=== PATIENT | male | born 1950 | race Caucasian/White ===

== ENCOUNTER 2016-10-27 13:55 | Emergency (ER) | payer BC ==
--- NOTE | 2016-10-27 14:07 | EDM.PDOC ---
ED HPI GENERAL MEDICAL PROBLEM - General Chief Complaint: General Stated Complaint: i feel dizzy, Time Seen by Provider: 10/27/16 14:00 Source of Information: Reports: Patient, Family (), Old Records ([facility] chart/EMR), Other (EMR records from [facility]) History Limitations: Reports: No Limitations - History of Present Illness INITIAL COMMENTS - FREE TEXT/NARRATIVE: The patient was brought to the emergency room via private automobile by his for evaluation of mild nonspecific 2/10 anterior bilateral parietal headaches associated with some dizziness, near syncope, and mild dyspnea with symptoms starting while 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 He has been compliant with Eliquis and aspirin with no other medication noncompliance. He denies any other neurological deficits with stable chronic mild left foot paresthesia and numbness, which is the only deficit from his CVA as above. The patient denies any chest pain/pressure, heart flutter, orthostasis , orthopnea, diaphoresis, paresthesias, recent decreased exercise tolerance, or any other anginal-type symptoms. No recent history of abdominal pain, heartburn , diarrhea, melena, gross hematochezia, or any food intolerance, including fatty foods, etc.. The patient also denies any recent fever, cough, wheezing, etc.. No history of recent headaches, visual changes, diplopia, change in mental status, or other change in neurological status. The patient did eat lunch today Onset: Today, Sudden Onset Date: 10/27/16 Onset Time: 13:15 Duration: Constant Location: Reports: Head (Mild headache). Denies: Face, Neck, Chest, Abdomen, Back, Pelvis, Upper Extremity, Left, Upper Extremity, Right, Lower Extremity, Left, Lower Extremity, Right, Generalized Quality: Reports: Ache, Same as Previous Episode Severity: Mild Improves with: Reports: None Worsens with: Reports: None Context: Reports: Other (As above) Associated Symptoms: Reports: Shortness of Breath, Syncope (Near syncope). 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 Denies: Allergic Rhinitis, Cataract, Glaucoma, Hard of Hearing, Macular Degeneration, Retinal Detachment Other HEENT History: Patient wears glasses Cardiovascular History: Reports: Arrhythmia, Blood Clots/VTE/DVT, High Cholesterol, PVD, Other (See Below). Denies: Afib, Aneurysm, CAD, Cardiomyopathy, Heart Failure, Heart Murmur, Hypertension, SC, Syncope Other Cardiovascular History: First-degree AV block and borderline incomplete left bundle branch block versus repolarization changes on 03/09/16, DVT of the right greater saphenous superficial vein on 08/07/16, mild bilateral carotid occlusive disease by CT angiogram on 03/09/16 Respiratory History: Reports: None. Denies: Asthma, COPD, Intubation, Previous , PE, Pneumothorax, Sleep Apnea Gastrointestinal History: Reports: Colon Polyp, Diverticulosis, Other (See Below ). Denies: Celiac Disease, Cholelithiasis, Chronic Constipation, Chronic Diarrhea, Gastritis, GERD, GI Bleed, Hepatitis, Inflammatory Bowel Disease, Irritable Bowel Syndrome, Jaundice, Pancreatitis, PUD Other Gastrointestinal History: Moderate to severe sigmoid diverticulosis with additional 2 hyperplastic one in the proximal ascending colon and the other at 7 cm in the rectum polyps removed via colonoscopy on 09/09/07 Genitourinary History: Reports: BPH. Denies: Acute Renal Failure, Chronic Renal Insuffiency, Renal Calculus, STD, Urinary Incontinence, UTI, Recurrent Musculoskeletal History: Reports: Arthritis, Back Pain, Chronic, Fracture, Neck Pain, Chronic, Osteoarthritis, Other (See Below). Denies: Gout, RA, SLE Other Musculoskeletal History: Diffuse lumbar grade 1 spondylolisthesis in the lumbar spine by x-ray , right fifth carpal fracture at about age 38, L5 vertebral body fracture secondary to fall with a history of chronic low back pain Neurological History: Reports: CVA, Neuropathy, Peripheral, Other (See Below). Denies: Cerebral Aneurysms, Concussion, Headaches, Chronic, Head Trauma, Migraines, MS, Parkinson's, Seizure, TIA Other Neuro History: Right-sided CVA with secondary mild dysarthria and left hemiparesis on 03/09/16 with remaining left foot paresthesias, note TPA started in our facility on 03/09/16 prior to transfer Psychiatric History: Reports: Anxiety, Depression, Other (See Below). Denies: Abuse, Victim of, ADD, ADHD, Addiction, Psych Hospitalization(s), PTSD, Suicide Attempt, Suicidal Ideation Endocrine/Metabolic History: Reports: None. Denies: Diabetes, Type I, Diabetes , Type II, Hypothyroidism, IDDM, Osteoporosis Hematologic History: Reports: Other (See Below). 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 Denies: AIDS, HIV, SLE Oncologic (Cancer) History: Denies: Basal Cell Carcinoma, Colon, Hodgkin's Lymphoma, Leukemia, Malignant Melanoma, Non-Hodgkin's Lymphoma, Squamous Cell Carcinoma Dermatologic History: Reports: None. Denies: Eczema, Psoriasis - Infectious Disease History Infectious Disease History: Reports: Chicken Pox, Measles, Mumps. Denies: C- Difficile, Meningitis, Mononucleosis, MRSA, Pertussis (Whooping Cough), Rheumatic Fever, Rubella, Scarlet Fever, Shingles, TB, VRE - Past Surgical History Head Surgeries/Procedures: Reports: None HEENT Surgical History: Reports: Oral Surgery, Other (See Below). Denies: Adenoidectomy, Cataract Surgery, Eye Surgery, Laser Surgery, LASIK, Myringotomy w Tube(s), Naso-Sinus Surgery, Tonsillectomy Other HEENT Surgeries/Procedures: [place] teeth extraction 4 at about age 19, tonsillectomy and adenoidectomy at about age 7 Cardiovascular Surgical History: Reports: Other (See Below). Denies: Varicose, Vascular Surgery Other Cardiovascular Surgeries/Procedures: Loop recorder placed on 03/11/16 Respiratory Surgical History: Reports: None. Denies: Lung Biopsies, Thoracentesis GI Surgical History: Reports: Appendectomy, Colonoscopy, Polypectomy, Other ( See Below). Denies: Cholecystectomy, EGD, Hernia, Abdominal, Hernia, Inguinal, Hernia Repair/Other Other GI Surgeries/Procedures: Appendectomy at age 15, initial colonoscopy on 09/10 with removal of 2 benign hyperplastic polyps with subsequent colonoscopy on 02/10/13 showing no evidence of recurrence of his polyps Male Surgical History: Reports: Circumcision, Vasectomy, Other (See Below). Denies: TURP-Transurethral Resection of Prostate Other Male Surgeries/Procedures: Circumcision as an , vasectomy in his 30s Endocrine Surgical History: Reports: None. Denies: Thyroid Biopsy Neurological Surgical History: Reports: Lumbar Spine, Spinal Fusion, Other (See Below). Denies: C-Spine, Discectomy, Intracranial, Laminectomy, Sacral Spine Other Neurological Surgeries/Procedures: L5-S1 spinal fusion on about 10/03/11 Musculoskeletal Surgical History: Reports: None. Denies: Amputation, Arthroscopic Procedure, Carpal Tunnel, Ganglion Cyst, Joint Replacement, ORIF, Shoulder Surgery Oncologic Surgical History: Reports: None Dermatological Surgical History: Reports: Other (See Below) Other Dermatological Surgeries/Procedures: Vision of benign lesion from the left arm on 11/29/12 - Past Imaging History Past Imaging History: Reports: Cardiac Echo (Initial transthoracic thoracic echocardiogram showed hyperdynamic function with ejection fraction of greater than 70% on 03/10/16 with follow-up transesophageal echocardiogram on 03/11/16 showing normal function of 55-60%), CAT Scan (CT of the brain on 03/09/06 which was negative with subsequent follow-up CTA of the neck and brain at [facility] with negative findings for CVA however mild bilateral carotid occlusive disease noted), MRA (As below), MRI (MRI/MRA of the brain on 03/09/16 positive for multiple embolic areas of the right posterior cerebral artery, MRI of the lumbar spine on 08/04/13), Venous Doppler (Venous Doppler study of the right leg on 08/07/16 positive for greater saphenous superficial vein DVT with previous negative bilateral venous Doppler studies of the lower legs on 03/10/16) Social & Family History - Family History HEENT: Reports: None. Denies: Cataract, Glaucoma, Macular Degeneration, Retinal Detachment Cardiac: Reports: Blood Clots/VTE/DVT, Other (See Below). Denies: Afib, Aneurysm, Arrhythmia, Bypass, CAD, Heart Failure, High Cholesterol, Hypertension , SC, Pacemaker, PVD/COD, Stent, Syncope Other Cardiac Family History: Niece with history of DVTs Respiratory: Reports: None. Denies: Asthma, COPD, PE, Pneumothorax, Sleep Apnea GI: Reports: None. Denies: Celiac Disease, Cholelithiasis, Colon Polyps, GERD, GI bleed, Inflammatory Bowel Disease, Irritable Bowel Syndrome, PUD : Reports: Other (See Below). Denies: Dialysis, Renal Calculus, Renal Disease /Insufficiency Other Family History: Daughter with history of focal glomerulosclerosis at age 2 OBGYN: Reports: None. Denies: Endometriosis, Recurrent Spontaneous Musculoskeletal: Reports: None. Denies: Gout, RA, SLE Neurological: Reports: Other (See Below). Denies: Alzheimers Disease, Cerebral Aneurysms, CVA, Dementia, Migraines, MS, Neuropathy, Peripheral, Parkinson's, Seizure, TIA Other Neurological Family History: Father with fatal ALS at age 67 Psychiatric: Reports: Anxiety, Depression, Other (See Below). Denies: Abuse, Victim of, ADD, ADHD, Psych Hospitalization(s), PTSD, Suicide Attempt Other Psychiatric Family History: Paternal uncle with anxiety depression disorder and history of alcohol abuse Endocrine/Metabolic: Reports: None. Denies: Diabetes, Type I, Diabetes, type II , Hypothyroidism, IDDM Hematologic: Reports: Other (See Below). Denies: Anemia, SLE Other Hematologic Family History: Sister with factor V Leiden deficiency(? carrier) Immunologic: Reports: None. Denies: AIDS, HIV, SLE Dermatologic: Reports: None. Denies: Angiodema, Eczema, Psoriasis Oncologic: Reports: Breast, Colon, Prostate, Other (See Below). Denies: Hodgkin 's Lymphoma, Leukemia, Lymphoma, Non-Hodgkin's Lymphoma, Skin Other Oncologic Family History: Paternal grandfather with fatal colon cancer at age 70, cousin with fatal prostate cancer at age 53, cousin 2 with with breast cancer at age 45 and age 42, paternal uncle with fatal prostate cancer at age 67 , another paternal uncle with unknown type of cancer fatal at age 70 - Tobacco Use Smoking Status *Q: Never Smoker Second Hand Smoke Exposure: No Second Hand Smoke Education Provided: No - Caffeine Use Caffeine Use: Reports: Coffee (2 cups per day and), Tea (2 bottles per week). Denies: Energy Drinks, Soda - Alcohol Use Alcohol Use History: Yes Days Per Week of Alcohol Use: 0 (No previous DWIs, problems with alcohol abuse, etc.) Number of Drinks Per Day: 0 (No alcohol use since his CVA in February 2016) Total Drinks Per Week: 0 - Recreational Drug Use Recreational Drug Use: No Drug Use in Last 12 Months: No Recreational Drug Type: Denies: Amphetamines (Speed), Cocaine, Heroin, Inhalants (Glues, Solvents, Aerosols), LSD (Acid), Marijuana/Hashish, Methamphetamine, Morphine - Living Situation & Occupation Living situation: Reports: (1985, 2 children from this relationship with his having 2 children from a previous marriage), with Family () 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 Constitutional: Denies: Fever, Chills, Malaise, Weakness, Fatigue, Night Sweats , Diaphoresis, Decreased Appetite, Weight Loss, Weight Gain HEENT: Reports: Glasses, Vertigo. Denies: Dental Pain, Ear Discharge, Ear Pain , Eye Discharge, Eye Pain, Hearing Loss, Rhinitis, Sinus Problem, Throat Pain, Throat Swelling, Vision Change Respiratory: Reports: Shortness of Breath. Denies: Wheezing, Pleuritic Chest Pain, Cough, Sputum, Hemoptysis Cardiovascular: Reports: Dyspnea on Exertion (Borderline), Lightheadedness, Syncope (Near syncope). Denies: Chest Pain, Blood Pressure Problem, Claudication, Edema, Orthopnea, Palpitations Endocrine: Reports: No Symptoms. Denies: Fatigue GI/Abdominal: Reports: No Symptoms. Denies: Abdominal Pain, Anorexia, Black Stool, Bloody Stool, Constipation, Diarrhea, Decreased Appetite, Difficulty Swallowing, Distension, Hematemesis, Hematochezia, Melena, Mucous in Stool, Nausea, Stool Incontinence, Vomiting : Reports: No Symptoms. Denies: Discharge, Dysuria, Flank Pain, Frequency, Hematuria, Incontinence, Pain, Urgency, Urinary Retention Musculoskeletal: Reports: No Symptoms. Denies: Neck Pain, Shoulder Pain, Arm Pain, Leg Pain, Joint Pain, Muscle Stiffness Skin: Reports: No Symptoms. Denies: Diaphoresis, Bruising, Wound Neurological: Reports: Dizziness, Headache, Numbness (Stable left foot paresthesias), Paresthesia (As above), Syncope (Near-syncope as above), Tingling (As above), Difficulty Walking (Secondary to his dizziness). Denies: Confusion, Pre-Existing Deficit, Seizure, Tremors, Trouble Speaking, Weakness, Change in Speech, Gait Disturbance Psychiatric: Reports: No Symptoms. Denies: Agitation, Anxiety, Confusion, Cravings, Depression, Hallucinations Hematologic/Lymphatic: Reports: No Symptoms Immunologic: Reports: No Symptoms ED EXAM, GENERAL - Physical Exam Exam: See Below Exam Limited By: No Limitations General Appearance: Alert, WD/WN, No Apparent Distress Eye Exam: Bilateral Eye: EOMI, Normal Fundi, Normal Inspection (No nystagmus), PERRL Ears: Normal External Exam, Normal Canal, Hearing Grossly Normal, Normal TMs Nose: Normal Inspection, Normal Mucosa, No Blood Throat/Mouth: Normal Inspection, Normal Lips, Normal Teeth, Normal Gums, Normal Oropharynx, Normal Voice, No Airway Compromise. No: Dysphagia, Perioral Cyanosis Head: Atraumatic, Normocephalic. No: Facial Swelling, Facial Tenderness, Sinus Tenderness Neck: Normal Inspection, Supple, Non-Tender, Full Range of Motion. No: Carotid Bruit, Lymphadenopathy (L), Lymphadenopathy (R), Thyromegaly Respiratory/Chest: No Respiratory Distress, Lungs Clear, Normal Breath Sounds, No Accessory Muscle Use, Chest Non-Tender. No: Pleural Rub, Retractions Cardiovascular: Normal Peripheral Pulses, Regular Rate, Rhythm, No Edema, No Gallop, No JVD, No Murmur, No Rub. No: Gallop/S3, Gallop/S4, Extra Beats (No extrasystoles at time of exam) Peripheral Pulses: 2+: Radial (L), Radial (R), Dorsalis Pedis (L), Dorsalis Pedis (R) GI/Abdominal: Normal Bowel Sounds, Soft, Non-Tender, No Organomegaly, No Distention, No Abnormal Bruit, No Mass. No: Guarding (Male) Exam: Deferred Rectal (Males) Exam: Deferred Back Exam: Normal Inspection, Full Range of Motion. No: CVA Tenderness (L), CVA Tenderness (R), Muscle Spasm Extremities: Normal Inspection, Normal Range of Motion, Non-Tender, No Pedal Edema, Normal Capillary Refill. No: Hernando's Sign Neurological: Alert, Oriented, CN II-XII Intact, Normal Cognition, Normal Gait, Normal Reflexes (Negative Babinski's, finger to nose, and pronator rotation tests. No evidence of facial paresis, tongue deviation, orthostasis, etc.. Excellent reverse thought processes.), No Motor/Sensory Deficits, Other (Mild orthostasis and dizziness with standing, however no vertigo) Psychiatric: Normal Affect, Normal Mood Skin Exam: Warm, Dry, Intact, Normal Color, No Rash. No: Ecchymosis, Wound/ Incision Lymphatic: No Adenopathy EKG INTERPRETATION EKG Date: 10/27/16 Time: 14:15 Rhythm: NSR Rate (Beats/Min): 60 [place]: Normal (Neutral) P-Wave: Enlarged (Moderate biphasic P waves with pulmonary hypertension by EKG) QRS: Wide (QRS interval of 0.11 seconds representing repolarization changes with stable T-wave inversion in leads 3 and V1) ST-T: Normal QT: Normal WV/PQ Interval: WV interval of 0.20 seconds representing borderline first- degree AV block Comparison: No Change (Last EKG on 03/09/16) EKG Interpretation Comments: 1. No acute ischemic changes 2. Left atrial enlargement 3. First-degree AV block 4. Pulmonary hypertension by EKG 5. Repolarization changes Course - Vital Signs Last Recorded V/S: Last Vital Signs Temp 36.4 C 10/27/16 14:31 Pulse 62 10/27/16 14:31 Resp 20 10/27/16 14:31 BP 132/86 10/27/16 14:31 Pulse Ox 100 10/27/16 14:31 Vital Signs - 24 hr 10/27/16 10/27/16 10/27/16 14:03 14:08 14:31 Temperature [ 35.9 C 36.4 C Temporal] Pulse, 70 62 62 Peripheral [ Left Pulse Oximetry] Respiratory 20 20 20 Rate Blood Pressure 119/73 128/85 132/86 [Right Upper Arm] O2 Sat by Pulse 99 99 100 Oximetry 10/27/16 10/27/16 10/27/16 14:45 15:00 15:36 Temperature [ Temporal] Pulse, 62 65 64 Peripheral [ Left Pulse Oximetry] Respiratory 16 15 14 Rate Blood Pressure 133/81 134/82 133/79 [Right Upper Arm] O2 Sat by Pulse 100 100 100 Oximetry 10/27/16 16:00 Temperature [ Temporal] Pulse, 67 Peripheral [ Left Pulse Oximetry] Respiratory 18 Rate Blood Pressure 135/85 [Right Upper Arm] O2 Sat by Pulse 100 Oximetry - Orders/Labs/Meds Orders: Active Orders 24 hr Category Date Time Status Cardiac Monitoring [RC] . DIRECTED Care 10/27/16 14:08 Active EKG Documentation Completion [RC] ASDIRECTED Care 10/27/16 14:08 Active Oxygen Therapy, ED [RC] CONTINUOUS Care 10/27/16 14:08 Active Peripheral IV Care [RC] . DIRECTED Care 10/27/16 14:08 Active Pulse Oximetry [RC] CONTINUOUS Care 10/27/16 14:08 Active Up With Assistance [RC] PFP Care 10/27/16 14:08 Active Vital Signs [RC] PFP Care 10/27/16 14:08 Active Nothing per Oral Now Diet [DIET] Diet 10/27/16 Breakfast Active Chest 1V Frontal [CR] Stat Exams 10/27/16 14:08 Ordered Head wo Cont [CT] Stat Exams 10/27/16 14:15 Ordered Sodium Chloride 0.9% [Saline Flush] Med 10/27/16 14:08 Active 10 ml FLUSH ASDIRECTED PRN Obtain Past Medical Record [OM.PC] Urgent Oth 10/27/16 14:08 Active Peripheral IV Insertion Adult [OM.PC] Stat Oth 10/27/16 14:08 Ordered Resuscitation Status Stat Resus Stat 10/27/16 14:08 Ordered Medication Orders Sodium Chloride (Saline Flush) 10 ml FLUSH ASDIRECTED PRN PRN Reason: Keep Vein Open Labs: Laboratory Tests 10/27/16 10/27/16 10/27/16 Range/Units 14:10 14:10 14:10 WBC 6.5 (4.0-10.2) K/uL RBC 4.44 (4.33-5.41) M/uL Hgb 14.1 (13.1-16.8) g/dL Hct 41.8 (39.0-49.0) % MCV 94.1 (84.0-98.0) fL MCH 31.8 (28.2-33.3) pg MCHC 33.7 (31.7-36.0) g/dL RDW 12.1 (11.2-14.1) % Plt Count 182 (150-350) K/uL Neut % (Auto) 68.2 (45.0-80.0) % Lymph % (Auto) 19.0 (10.0-50.0) % Lanier % (Auto) 8.3 (2.0-14.0) % Eos % (Auto) 4.0 (0.0-5.0) % Baso % (Auto) 0.5 (0.0-2.0) % Neut # (Auto) 4.46 (1.40-7.00) K/uL Lymph # (Auto) 1.24 (0.50-3.50) K/uL [place]ier # (Auto) 0.54 (0.00-1.00) K/uL Eos # (Auto) 0.26 (0.00-0.50) K/uL Baso # (Auto) 0.03 (0.00-0.20) K/uL PT 10.5 (9.8-11.7) SEC INR 1.0 APTT 24.4 (23.5-30.0) SEC D-Dimer, Quantitative 183 (0-400) ng/mL Sodium (136-145) mmol/L Potassium (3.5-5.1) mmol/L Chloride (98-107) mmol/L Carbon Dioxide (21.0-32.0) mmol/L BUN (7-18) mg/dL Creatinine (0.51-1.17) mg/dL Est Cr Clr Drug Dosing mL/min Estimated GFR (MDRD) mL/min Glucose (74-106) mg/dL Lactic Acid (0.4-2.0) mmol/L Uric Acid (2.6-7.2) mg/dL Calcium (8.5-10.1) mg/dL Magnesium (1.8-2.4) mg/dL Total Bilirubin (0.2-1.0) mg/dL AST (15-37) U/L ALT (12-78) U/L Alkaline Phosphatase (46-116) IU/L Creatine Kinase (26-308) U/L Creatine Kinase Index (0.0-2.5) % CK-MB (CK-2) (0.00-3.60) ng/mL Troponin I (0.000-0.056) ng/mL NT-Pro-B Natriuret Pep (0-125) pg/mL Total Protein (6.4-8.2) g/dL Albumin (3.4-5.0) g/dL TSH, Ultra Sensitive (0.358-3.740) mIU/mL 10/27/16 10/27/16 Range/Units 14:10 14:10 WBC (4.0-10.2) K/uL RBC (4.33-5.41) M/uL Hgb (13.1-16.8) g/dL Hct (39.0-49.0) % MCV (84.0-98.0) fL MCH (28.2-33.3) pg MCHC (31.7-36.0) g/dL RDW (11.2-14.1) % Plt Count (150-350) K/uL Neut % (Auto) (45.0-80.0) % Lymph % (Auto) (10.0-50.0) % Lanier % (Auto) (2.0-14.0) % Eos % (Auto) (0.0-5.0) % Baso % (Auto) (0.0-2.0) % Neut # (Auto) (1.40-7.00) K/uL Lymph # (Auto) (0.50-3.50) K/uL Lanier # (Auto) (0.00-1.00) K/uL Eos # (Auto) (0.00-0.50) K/uL Baso # (Auto) (0.00-0.20) K/uL PT (9.8-11.7) SEC INR APTT (23.5-30.0) SEC D-Dimer, Quantitative (0-400) ng/mL Sodium 141 (136-145) mmol/L Potassium 3.8 (3.5-5.1) mmol/L Chloride 103 (98-107) mmol/L Carbon Dioxide 28.8 (21.0-32.0) mmol/L BUN 17 (7-18) mg/dL Creatinine 1.07 (0.51-1.17) mg/dL Est Cr Clr Drug Dosing 75.26 mL/min Estimated GFR (MDRD) > 60 mL/min Glucose 94 (74-106) mg/dL Lactic Acid 0.9 (0.4-2.0) mmol/L Uric Acid 5.5 (2.6-7.2) mg/dL Calcium 8.8 (8.5-10.1) mg/dL Magnesium 1.9 (1.8-2.4) mg/dL Total Bilirubin 0.5 (0.2-1.0) mg/dL AST 29 (15-37) U/L ALT 43 (12-78) U/L Alkaline Phosphatase 82 (46-116) IU/L Creatine Kinase 126 (26-308) U/L Creatine Kinase Index 1.8 (0.0-2.5) % CK-MB (CK-2) 2.30 (0.00-3.60) ng/mL Troponin I 0.000 (0.000-0.056) ng/mL NT-Pro-B Natriuret Pep 69 (0-125) pg/mL Total Protein 6.7 (6.4-8.2) g/dL Albumin 3.8 (3.4-5.0) g/dL TSH, Ultra Sensitive 2.172 (0.358-3.740) mIU/mL Meds: Medications Generic Name Dose Route Start Last Admin Trade Name Freq PRN Reason Stop Dose Admin Sodium Chloride 10 ml 10/27/16 14:08 Saline Flush FLUSH ASDIRECTED PRN Keep Vein Open Discontinued Medications Generic Name Dose Route Start Last Admin Trade Name Freq PRN Reason Stop Dose Admin Famotidine 40 mg 10/27/16 14:08 10/27/16 14:13 Pepcid IVPUSH 10/27/16 14:09 40 mg ONETIME ONE Administration - Radiology Interpretation Free Text/Narrative:: transition mgr shows normal sinus rhythm with heart rate in the low 60s with occasional mild sinus bradycardia in the high 80s. Occasional uniform PVCs noted but no other significant no ectopy or arrhythmia Chest x-ray, portable, shows mild obstructive disease with possible mild left atrial enlargement with no cardiomegaly, CHF, pulmonary infiltrates, pneumothorax, etc. Loop recorder noted in the left upper chest wall region Telephone consultation at 15:08 hours with the radiology department at [facility] with preliminary verbal report of noncontrast CT of the brain. Borderline sinusitis noted but no other acute findings CT Results Date: 10/27/16 CT Results Time: 15:08 Departure - Departure Time of Disposition: 16:15 Disposition: DC/Tfer to Acute Hospital 02 Condition: Good Clinical Impression: Dizziness, Factor V deficiency, congenital, PVCs (premature ventricular contractions), Mixed anxiety depressive disorder CVA (cerebral vascular accident) Qualifiers: CVA mechanism: embolism Precerebral and cerebral artery: posterior cerebral artery Laterality of affected vessel: right Qualified Code(s): I63.431 - Cerebral infarction due to embolism of right posterior cerebral artery Hyperlipidemia Qualifiers: Hyperlipidemia type: unspecified Qualified Code(s): E78.5 - Hyperlipidemia, unspecified Osteoarthritis Qualifiers: Osteoarthritis location: multiple joints Osteoarthritis type: primary Qualified Code(s): M15.0 - Primary generalized (osteo)arthritis COPD (chronic obstructive pulmonary disease) Qualifiers: COPD type: emphysema Emphysema type: panlobular Qualified Code(s): J43.1 - Panlobular emphysema - Discharge Information Forms: Interfacility Transfer EMTALA, ED Department Discharge - Problem List & Annotations (1) Dizziness SNOMED Code(s): 301484364, 450737986 Code(s): R42 - DIZZINESS AND GIDDINESS Status: Acute Priority: High Onset Date: 10/27/16 Annotation/Comment:: Stroke code not called secondary to absence of acute neurological history and clinical findings. Note significant CVA in the past as below/above, however. Telephone consultation initially at 15: [address] Jones, emergency room physician at [facility], who recommends direct admission to the hospitalist service. Subsequent telephone consultation at 15:[address] Macedo, hospitalist at [facility], who does accept the patient for direct admission, with no further treatment recommendations given. Various therapeutic options were discussed with the patient, his , and his daughter by telephone consultation with all parties requesting transfer to [place] rather than admission to our facility for observation. Symptoms somewhat improved at time of transfer, including his headache. Possible labyrinthitis, however neurological checks will be conducted by the paramedics in route with direct evaluation in the emergency room, if the patient's neurological condition changes. No clinical evidence of significant sinusitis despite CT findings as above. Secondary to his loop recorder he is likely not a candidate for repeat MRI although accepting physicians will check on the model number of this device. 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 No true neurological deficits or true neurological type symptoms prior to arrival. D-dimer is normal today with previously elevated d-dimer is at time of both his CVA and right leg DVT. No clinical evidence of DVT or PE despite his history of mild nonspecific dyspnea as above. Consider CTA of the chest depending on his clinical course. Qualifiers: CVA mechanism: embolism Precerebral and cerebral artery: posterior cerebral artery Laterality of affected vessel: right Qualified Code(s): I63.431 - Cerebral infarction due to embolism of right posterior cerebral artery (3) PVCs (premature ventricular contractions) SNOMED Code(s): 95850079 Code(s): I49.3 - VENTRICULAR PREMATURE DEPOLARIZATION Status: Acute Priority: Medium Onset Date: 10/27/16 Annotation/Comment:: Note occasional uniform PVCs and borderline bradycardia noted. No true anginal-type symptoms. Note current loop recorder, which has been negative to this point by their history. Additional history of borderline repolarization changes versus incomplete bundle branch block and first-degree AV block with no beta britney therapy (4) COPD (chronic obstructive pulmonary disease) SNOMED Code(s): 40232293 Code(s): J44.9 - CHRONIC OBSTRUCTIVE PULMONARY DISEASE, UNSPECIFIED Status : Chronic Priority: Medium Annotation/Comment:: Borderline COPD by chest x- ray and pulmonary hypertension by EKG with consideration of PFTs depending on his clinical course. No fever or bronchitic type symptoms Qualifiers: COPD type: emphysema Emphysema type: panlobular Qualified Code(s): J43.1 - Panlobular emphysema (5) Factor V deficiency, congenital SNOMED Code(s): 84333719 Code(s): D68.2 - HEREDITARY DEFICIENCY OF OTHER CLOTTING FACTORS Status: Chronic Priority: Medium Annotation/Comment:: As above. Note current aspirin and Eliquis therapy with the patient and his advised to discuss this further with accepting providers and his clinical evaluator to see whether aspirin should be continued in light of his Eliquis. (6) Hyperlipidemia SNOMED Code(s): 74603368 Code(s): E78.5 - HYPERLIPIDEMIA, UNSPECIFIED Status: Chronic Priority: Medium Annotation/Comment:: Currently under therapy. No chest pain or anginal type symptoms. Qualifiers: Hyperlipidemia type: unspecified Qualified Code(s): E78.5 - Hyperlipidemia , unspecified (7) Mixed anxiety depressive disorder SNOMED Code(s): 744310016 Code(s): F41.8 - OTHER SPECIFIED ANXIETY DISORDERS Status: Chronic Priority: Medium Annotation/Comment:: Stable by patient history with no current medical therapy required (8) Osteoarthritis SNOMED Code(s): 509378898 Code(s): M19.90 - UNSPECIFIED OSTEOARTHRITIS, UNSPECIFIED SITE Status: Chronic Priority: Medium Annotation/Comment:: Stable by patient history Qualifiers: Osteoarthritis location: multiple joints Osteoarthritis type: primary Qualified Code(s): M15.0 - Primary generalized (osteo)arthritis - Problem List Review Problem List Initiated/Reviewed/Updated: Yes - My Orders Last 24 Hours: My Active Orders 10/27/16 14:08 Cardiac Monitoring [RC] . DIRECTED EKG Documentation Completion [RC] ASDIRECTED Oxygen Therapy, ED [RC] CONTINUOUS Peripheral IV Care [RC] . DIRECTED Pulse Oximetry [RC] CONTINUOUS Up With Assistance [RC] PFP Vital Signs [RC] PFP Chest 1V Frontal [CR] Stat Sodium Chloride 0.9% [Saline Flush] 10 ml FLUSH ASDIRECTED PRN Obtain Past Medical Record [OM.PC] Urgent Peripheral IV Insertion Adult [OM.PC] Stat Resuscitation Status Stat 10/27/16 14:15 Head wo Cont [CT] Stat 10/27/16 Breakfast Nothing per Oral Now Diet [DIET] - Assessment/Plan Last 24 Hours: My Active Orders 10/27/16 14:08 Cardiac Monitoring [RC] . DIRECTED EKG Documentation Completion [RC] ASDIRECTED Oxygen Therapy, ED [RC] CONTINUOUS Peripheral IV Care [RC] . DIRECTED Pulse Oximetry [RC] CONTINUOUS Up With Assistance [RC] PFP Vital Signs [RC] PFP Chest 1V Frontal [CR] Stat Sodium Chloride 0.9% [Saline Flush] 10 ml FLUSH ASDIRECTED PRN Obtain Past Medical Record [OM.PC] Urgent Peripheral IV Insertion Adult [OM.PC] Stat Resuscitation Status Stat 10/27/16 14:15 Head wo Cont [CT] Stat 10/27/16 Breakfast Nothing per Oral Now Diet [DIET] Assessment:: As above Plan: As above. Extensive precautions were given to the patient and his , who are in agreement with the treatment plan. Ambulance transfer with children[facility] [employer] caretaker accompaniment
[2016-10-27] MEDS ORDERED: Sodium Chloride 0.9% 10 ML Syringe FLUSH PRN (14:08)
[2016-10-27] MEDS ORDERED: Famotidine 20 MG/2 ML SDV IVPUSH ONE (14:08)
[2016-10-27 14:40] LABS: CHLORIDE,CL 103 mmol/L (98-107); SODIUM,NA 141 mmol/L (136-145)
[2016-10-27 16:01] VITALS: BP 135/85
== END 2016-10-27 16:15 ==
LOC: LL.ED 13:55
DX: I63.431 Cerebral infarction due to embolism of right posterior cerebral artery (principal); I49.3 Ventricular premature depolarization; F41.8 Other specified anxiety disorders; D68.2 Hereditary deficiency of other clotting factors; J43.1 Panlobular emphysema; M15.0 Primary generalized (osteo)arthritis; E78.5 Hyperlipidemia, unspecified; Z88.0 Allergy status to penicillin; Z79.82 Long term (current) use of aspirin; Z90.89 Acquired absence of other organs
CPT/HCPCS: 36415; 70450; 71010; 80053; 82550; 82553; 83605; 83735; 83880; 84443; 84484; 84550; 85025; 85379; 85610; 85730; 93005; 96374; 99285; S0028

== ENCOUNTER 2021-02-07 11:12 | Day surgery (SDC) | payer MEDICARE, BC ==
[~2021-02-07 11:12] MED LIST: Midazolam 1 MG/ML 2 ML SDV ONE; Propofol 200 MG/20 ML SDV ONE
[2021-02-07] MEDS ORDERED: Lactated Ringers 1,000 ML IV SCH (11:15)
[2021-02-07] MEDS ORDERED: Sodium Chloride 0.9% 10 ML Syringe FLUSH PRN (11:15)
[2021-02-07] MEDS ORDERED: Propofol 200 MG/20 ML SDV ONE (12:45)
[2021-02-07] MEDS ORDERED: Midazolam 1 MG/ML 2 ML SDV ONE (12:45)
--- NOTE | 2021-02-07 12:45 | PCM.PN ---
- General Info Date of Service: 02/07/21 - Review of Systems Systems Review Comment:: 70-year-old male here for screening colonoscopy. He does have a known history of colon polyps and diverticulosis. Patient is medically stable to proceed today. His recent history and physical is reviewed and no significant changes are noted. I have discussed the proposed colonoscopy with the patient. Risks such as but not limited to bleeding and GI injury reviewed. He agrees to proceed. - Patient Data Vitals - Most Recent: Last Vital Signs Temp 98.2 F 02/07/21 11:43 Pulse 79 02/07/21 11:43 Resp 18 02/07/21 11:43 BP 129/84 02/07/21 11:43 Pulse Ox 100 02/07/21 11:43 Weight - Most Recent: 83.461 kg Med Orders - Current: Current Medications Lactated Ringer's (Ringers, Lactated) 1,000 mls @ 125 mls/hr IV ASDIRECTED JEFFREY Last Admin: 02/07/21 11:57 Dose: 125 mls/hr Documented by: Sodium Chloride (Sodium Chloride 0.9% 10 Ml Syringe) 10 ml FLUSH ASDIRECTED PRN PRN Reason: Keep Vein Open Discontinued Medications Midazolam HCl (Midazolam 1 Mg/Ml 2 Ml Sdv) Confirm Administered Dose 2 mg .ROUTE .STK-MED ONE Stop: 02/07/21 08:41 Propofol (Propofol 200 Mg/20 Ml Sdv) Confirm Administered Dose 400 mg .ROUTE .STK-MED ONE Stop: 02/07/21 08:42 Sepsis Event Note - Focused Exam Vital Signs: Vital Signs Temp Pulse Resp BP Pulse Ox 02/07/21 11:43 98.2 F 79 18 129/84 100 - Problem List Review Problem List Initiated/Reviewed/Updated: Yes - My Orders Last 24 Hours: My Active Orders 02/07/21 11:15 Patient Status [ADT] Routine Peripheral IV Care [RC] . DIRECTED Verify Patient Consent Obtain [RC] ASDIRECTED Lactated Ringers [Ringers, Lactated] 1,000 ml IV ASDIRECTED Sodium Chloride 0.9% [Saline Flush] 10 ml FLUSH ASDIRECTED PRN Peripheral IV Insertion Adult [OM.PC] Routine - Assessment Assessment:: Colon cancer screening History of colon polyps - Plan Plan:: Colonoscopy
--- NOTE | 2021-02-07 13:32 | PCM.OPNOTE ---
- General Post-Op/Procedure Note Date of Surgery/Procedure: 02/07/21 Operative Procedure(s): Colonoscopy with polypectomy Findings: 2 small right sided colon polyps Extensive sigmoid diverticulosis Pre Op Diagnosis: Colon cancer screening Post-Op Diagnosis: Colon polyps. Sigmoid diverticulosis Anesthesia Technique: MAC Primary Surgeon: Shoaib Villalpando Pathology: Colon polyps EBL in mLs: 1 Complications: None Condition: Good
[2021-02-07 16:33] VITALS: BP 122/79; PULSE 67
--- NOTE | 2021-02-08 07:10 | OR ---
Date of Procedure: 02/07/2021 PREOPERATIVE DIAGNOSIS: Colon cancer screening with history of colon polyps. POSTOPERATIVE DIAGNOSES: Colon polyps and sigmoid diverticulosis. OPERATION PERFORMED: Colonoscopy with polypectomy. INDICATIONS FOR SURGERY: This is a 70-year-old male who has a known history of colon polyps having been removed several years ago. He comes today for screening colonoscopy. FINDINGS: Two polyps were noted on today's exam. There is a 4 mm sessile polyp in the ascending colon and a 5 mm sessile polyp at the level of hepatic flexure. The patient also has extensive diverticulosis of the sigmoid region, but without evidence of acute inflammation. The colon otherwise appears normal. DESCRIPTION OF PROCEDURE: The patient was taken to the operating room. He was given intravenous sedation, and with him in the left lateral decubitus position, digital rectal exam was performed showing no rectal masses. The Olympus colonoscope was inserted into the rectum. Retroflexed examination of the rectal canal was performed. The scope was then carefully advanced under direct visualization through the entire length of the colon until the cecum was reached. Cecal acquisition was confirmed by noting the normal internal cecal anatomy including the appendiceal orifice and the ileocecal valve. The light was also noted to transilluminate the abdominal wall in the right lower quadrant. After examining the cecum, the scope was slowly withdrawn sequentially re-examining the colonic segments. During withdrawal of the scope, the above-described polyps were each removed in their entirety with cold biopsy forceps. Both specimens were submitted for pathology. The examination was then completed, and with no sign of bleeding or any other complication, the scope was removed. The patient was then taken from the operating room in satisfactory condition. ESTIMATED BLOOD LOSS: 1 mL. COMPLICATIONS: None. PROGNOSIS: Good. GARRETT Villalpando MD /[id number] [facility]
== END 2021-02-07 14:45 | disposition home or self-care (01) ==
LOC: LL.SDS 11:12
PROVIDERS: ATTEND Surgery
DX: Z12.11 Encounter for screening for malignant neoplasm of colon (principal); D12.3 Benign neoplasm of transverse colon; K57.30 Diverticulosis of large intestine without perforation or abscess without bleeding; I45.10 Unspecified right bundle-branch block; Z90.49 Acquired absence of other specified parts of digestive tract; Z98.890 Other specified postprocedural states; Z79.82 Long term (current) use of aspirin; Z88.8 Allergy status to other drugs, medicaments and biological substances; Z88.0 Allergy status to penicillin
CPT/HCPCS: 00812; 45380; J2250; J2704; J7120

== ENCOUNTER 2022-08-03 09:44 | Emergency (ER) | payer MEDICARE, BC ==
[2022-08-03 10:15] LABS: BASOPHILS ABSOLUTE AUTO 0.04 K/uL (0.00-0.20); BASOPHILS PERCENT AUTO 0.4 % (0.0-2.0); EOSINOPHILS ABSOLUTE AUTO 0.15 K/uL (0.00-0.50); EOSINOPHILS PERCENT AUTO 1.5 % (0.0-5.0); HEMATOCRIT 35.2 % (39.0-49.0); HEMOGLOBIN 11.3 g/dL (13.1-16.8); LYMPHOCYTES ABSOLUTE AUTO 0.88 K/uL (0.50-3.50); MEAN CORPUSCULAR HEMOGLOBIN 30.3 pg (28.2-33.3); MEAN CORPUSCULAR HGB CONC 32.1 g/dL (31.7-36.0); MEAN CORPUSCULAR VOLUME 94.4 fL (84.0-98.0); MONOCYTES ABSOLUTE AUTO 0.86 K/uL (0.00-1.00); MONOCYTES PERCENT AUTO 8.8 % (2.0-14.0); NEUTROPHILS ABSOLUTE AUTO 7.83 K/uL (1.40-7.00); NEUTROPHILS PERCENT AUTO 80.3 % (45.0-80.0); PLATELET COUNT,PLT 394 K/uL (150-350); RED BLOOD CELL COUNT 3.73 M/uL (4.33-5.41); RED CELL DISTRIBUTION WIDTH 13.1 % (11.2-14.1); WHITE BLOOD CELL COUNT,WBC 9.8 K/uL (4.0-10.2)
[2022-08-03 10:26] LABS: APPEARANCE,URINE CLEAR; BILIRUBIN,URINE NEGATIVE (NEGATIVE); COLOR,URINE YELLOW; GLUCOSE,URINE NEGATIVE (NEGATIVE); KETONES,URINE NEGATIVE (NEGATIVE); LEUKOCYTE ESTERASE,URINE NEGATIVE (NEGATIVE); NITRITE,URINE NEGATIVE (NEGATIVE); OCCULT BLOOD,URINE NEGATIVE (NEGATIVE); PH,URINE 5.5 (5.0-9.0); PROTEIN,URINE NEGATIVE (NEGATIVE); UROBILINOGEN,URINE 0.2 E.U./dL (0.2-1.0)
[2022-08-03 10:49] LABS: ALBUMIN 2.6 g/dL (3.4-5.0); ANION GAP 5.9 meq/L (7-15); BILIRUBIN TOTAL 0.5 mg/dL (0.2-1.0); CALCIUM 8.5 mg/dL (8.5-10.1); CARBON DIOXIDE,CO2 30.1 mmol/L (21.0-32.0); CREATININE 1.12 mg/dL (0.51-1.17); EST CRCL DRUG DOSING (CG) 64.27 mL/min; POTASSIUM,K 4.2 mmol/L (3.5-5.1); PROTEIN TOTAL,TP 6.4 g/dL (6.4-8.2)
[2022-08-03 12:09] VITALS: BP 122/74; PULSE 78
[2022-08-04 10:39] LABS: BACTERIA,URINE NOT SEEN /HPF (NONE TO FEW); EPITHELIAL CELLS,URINE NOT SEEN /LPF; RBC,URINE 0-5 /HPF; WBC,URINE 0-5 /HPF
== END 2022-08-03 11:29 ==
LOC: LL.ED 09:44
DX: N49.2 Inflammatory disorders of scrotum (principal); E78.00 Pure hypercholesterolemia, unspecified; I25.10 Atherosclerotic heart disease of native coronary artery without angina pectoris; Z88.0 Allergy status to penicillin; Z79.82 Long term (current) use of aspirin; Z79.899 Other long term (current) drug therapy; Z90.49 Acquired absence of other specified parts of digestive tract
CPT/HCPCS: 36415; 80053; 81001; 85025; 99284

== ENCOUNTER 2022-09-04 10:40 | Day surgery (SDC) | payer MEDICARE, BC ==
[~2022-09-04 10:40] MED LIST changes: -Midazolam 1 MG/ML 2 ML SDV ONE
[2022-09-04] MEDS ORDERED: Sodium Chloride 0.9% 10 ML Syringe FLUSH PRN (11:28)
[2022-09-04] MEDS: Lactated Ringers 1,000 ML IV SCH (11:47)
[2022-09-05 14:20] VITALS: BP 113/79; PULSE 67
== END 2022-09-04 13:45 | disposition home or self-care (01) ==
LOC: LL.SDS 10:40
PROVIDERS: ATTEND Surgery
DX: K21.00 Gastro-esophageal reflux disease with esophagitis, without bleeding (principal); K29.50 Unspecified chronic gastritis without bleeding; K22.89 Other specified disease of esophagus; E78.5 Hyperlipidemia, unspecified; R63.4 Abnormal weight loss; N43.1 Infected hydrocele; Z86.010 Personal history of colon polyps; Z79.82 Long term (current) use of aspirin; Z79.899 Other long term (current) drug therapy; Z88.0 Allergy status to penicillin; Z88.8 Allergy status to other drugs, medicaments and biological substances
CPT/HCPCS: 00731; J2704; J7120

== ENCOUNTER 2024-08-22 13:13 | Emergency (ER) | payer MEDICARE, BC ==
[2024-08-22 13:41] LABS: BASOPHILS ABSOLUTE AUTO 0.05 K/uL (0.00-0.20); BASOPHILS PERCENT AUTO 0.7 % (0.0-2.0); EOSINOPHILS ABSOLUTE AUTO 0.22 K/uL (0.00-0.50); EOSINOPHILS PERCENT AUTO 2.9 % (0.0-5.0); HEMATOCRIT 43.1 % (39.0-49.0); HEMOGLOBIN 14.4 g/dL (13.1-16.8); IMMATURE GRAN ABSOLUTE AUTO 0.02 10^3/uL (0.00-0.04); IMMATURE GRAN PERCENT AUTO 0.3 % (0.0-0.4); LYMPHOCYTES ABSOLUTE AUTO 0.63 K/uL (0.50-3.50); LYMPHOCYTES PERCENT AUTO 8.2 % (10.0-50.0); MEAN CORPUSCULAR HEMOGLOBIN 31.8 pg (28.2-33.3); MEAN CORPUSCULAR HGB CONC 33.4 g/dL (31.7-36.0); MEAN CORPUSCULAR VOLUME 95.1 fL (84.0-98.0); MONOCYTES ABSOLUTE AUTO 0.57 K/uL (0.00-1.00); MONOCYTES PERCENT AUTO 7.4 % (2.0-14.0); NEUTROPHILS ABSOLUTE AUTO 6.17 K/uL (1.40-7.00); NEUTROPHILS PERCENT AUTO 80.5 % (45.0-80.0); PLATELET COUNT,PLT 206 K/uL (150-350); RED BLOOD CELL COUNT 4.53 M/uL (4.33-5.41); RED CELL DISTRIBUTION WIDTH 12.5 % (11.2-14.1); WHITE BLOOD CELL COUNT,WBC 7.7 K/uL (4.0-10.2)
[2024-08-22 14:04] LABS: ALBUMIN 3.6 g/dL (3.4-5.0); ANION GAP 11.2 meq/L (7-15); BILIRUBIN TOTAL 0.5 mg/dL (0.2-1.0); CALCIUM 8.9 mg/dL (8.5-10.1); CARBON DIOXIDE,CO2 26.8 mmol/L (21.0-32.0); CREATININE 0.96 mg/dL (0.51-1.17); EST CRCL DRUG DOSING (CG) 68.28 mL/min; POTASSIUM,K 4.1 mmol/L (3.5-5.1); PROTEIN TOTAL,TP 6.7 g/dL (6.4-8.2)
[2024-08-22 14:10] VITALS: BP 124/79; PULSE 60
== END 2024-08-22 14:20 | disposition home or self-care (01) ==
LOC: LL.ED 13:13
DX: R55 Syncope and collapse (principal); I13.0 Hypertensive heart and chronic kidney disease with heart failure and stage 1 through stage 4 chronic kidney disease, or unspecified chronic kidney disease; N18.9 Chronic kidney disease, unspecified; I50.9 Heart failure, unspecified; I25.10 Atherosclerotic heart disease of native coronary artery without angina pectoris; E78.00 Pure hypercholesterolemia, unspecified; Z79.82 Long term (current) use of aspirin; Z79.899 Other long term (current) drug therapy; V84.5XXA Driver of special agricultural vehicle injured in nontraffic accident, initial encounter; Y93.89 Activity, other specified
CPT/HCPCS: 36415; 80053; 83605; 83735; 84484; 85025; 93005; 93010; 99284